=== PATIENT | male | born 1980 | race Caucasian/White ===

== ENCOUNTER → 2020-01-24 | Outpatient (CLI) | payer OTHER ==
--- NOTE | 2020-01-24 16:11 | Diagnostic Imaging Report ---
EXAM: Focused Soft Tissue Ultrasound Evaluation of the right and left neck INDICATION: ^LEFT SIDE SIDE NECK PAIN COMPARISON: None TECHNIQUE: Torre scale, color Doppler images of the right and left neck soft tissues were obtained. FINDINGS: No sonographic abnormalities. Scattered nonenlarged lymph nodes. IMPRESSION: Unremarkable exam. Signed by: Fabiola Amos MD on 01/24/2020 4:08 PM
--- NOTE | 2020-01-24 16:18 | Diagnostic Imaging Report ---
EXAM: Focused Soft Tissue Ultrasound Evaluation of the left groin INDICATION: ^LEFT GROIN PAIN COMPARISON: None TECHNIQUE: Torre scale, color Doppler images of the left groin were obtained. Right groin images were also obtained for comparison. FINDINGS: No sonographic abnormalities. IMPRESSION: Unremarkable exam. Signed by: Fabiola Amos MD on 01/24/2020 4:14 PM
== END ==
LOC: CARD 14:27
PROVIDERS: ATTEND Family Medicine
DX: R10.32 Left lower quadrant pain (principal); M54.2 Cervicalgia; R20.0 Anesthesia of skin
CPT/HCPCS: 76536; 76882; 93926